=== PATIENT | female | born 1945 | race Caucasian/White ===

== ENCOUNTER 2018-05-08 09:05 | Day surgery (SDC) | payer MEDICARE, BC ==
[2018-05-04 17:17] LABS: BASOPHILS % (AUTO) 0.4 % (0-1); EOSINOPHILS # (AUTO) 0.3 X10'3 (0-0.9); LYMPHOCYTES # (AUTO) 1.9 X10'3 (1.1-4.8); LYMPHOCYTES % (AUTO) 35.2 % (21-51); MEAN CORPUSCULAR HEMOGLOBIN 31.3 PG (27.0-31.0); MEAN CORPUSCULAR HGB CONC 33.3 % (33.0-36.5); MEAN CORPUSCULAR VOLUME 93.8 FL (78-98); MONOCYTES # (AUTO) 0.6 X10'3 (0-0.9); MONOCYTES % (AUTO) 10.5 % (2-12); NEUTROPHILS # (AUTO) 2.6 X10'3 (1.8-7.7); NEUTROPHILS % (AUTO) 47.9 % (42-75); PRE OP HEMATOCRIT 42.1 % (35.0-45.0); PRE OP PLATELET COUNT 227 X10'3 (140-440); RED BLOOD COUNT 4.49 X10'6 (4.20-5.60); RED CELL DISTRIBUTION WIDTH 13.2 % (11.5-14.5)
[2018-05-04 17:24] LABS: PRE OP PROTIME 10.4 SECONDS (9.0-12.0)
[2018-05-04 17:41] LABS: ALBUMIN 3.9 G/DL (3.4-5.0); ALBUMIN/GLOBULIN RATIO 1.1 (1.1-1.5); ALKALINE PHOSPHATASE 112 IU/L (46-116); BLOOD UREA NITROGEN 15 MG/DL (7-18); BUN/CREATININE RATIO 20.3 (6.6-38.0); CALCIUM 9.5 MG/DL (8.5-10.1); CHLORIDE 105 MMOL/L (99-107); CREATININE 0.74 MG/DL (0.40-0.90); PRE OP ALT 34 U/L (30-65); PRE OP ANION GAP 11 (8-16); PRE OP AST 23 U/L (10-37); PRE OP BILIRUB, TOTAL 0.3 MG/DL (0.0-1.0); PRE OP GLUCOSE 94 MG/DL (70-104); PRE OP SODIUM 143 MMOL/L (135-145); TOTAL CARBON DIOXIDE 26.9 MMOL/L (24-32); TOTAL PROTEIN 7.3 G/DL (6.4-8.2); eGFR 77 ML/MIN
[2018-05-08] VITALS (22 sets, daily range): BP systolic 112–140; BP diastolic 62–105
[~2018-05-08] VITALS: Ht 162.6 cm; Wt 67.0 kg
[~2018-05-08 09:05] MED LIST: AMLO5TAB PO; ceFOXitin 2 GM ADDVANTGE BAG 50 ML IV ONE; ceFOXitin 2 GM ADDvantage bag 100 ML IV ONE; famotidine 20mg tablet PO ONE; ringers solution, lacted 1,000 ML IV SCH
[2018-05-08] MEDS ORDERED: BUPIVAcaine/PF 2.5mg/ml (0.25%) 10ml vial ONE (09:09)
[2018-05-08] MEDS ORDERED: morphine 10mg/ml inj. ONE (09:09)
[2018-05-08] MEDS ORDERED: ceFAZolin 1000mg inj ONE (09:09)
[2018-05-08] MEDS ORDERED: LIDOcaine 1% 30ml preserv. free vial ONE (09:09)
[2018-05-08] MEDS ORDERED: clindamycin phosphate 40gm vag cream ONE (09:09)
[2018-05-08] MEDS ORDERED: vasoPRESSIN 20 units/ml inj. ONE (09:10)
[2018-05-08] MEDS ORDERED: dexamethasone sod phosphate 10mg/ml inj ONE (10:37)
[2018-05-08] MEDS ORDERED: glycopyrrolate 0.2mg/ml inj ONE (10:37)
[2018-05-08] MEDS ORDERED: neostigmine methylsulfate 1 MG/ML 10ml vial ONE (10:37)
[2018-05-08] MEDS ORDERED: sevoflurane 250ml liquid IH ONE (10:37)
[2018-05-08] MEDS ORDERED: rocuronium 10mg/ml inj IV ONE (10:38)
[2018-05-08] MEDS ORDERED: propofol inj 20 ML IV ONE (10:38)
[2018-05-08] MEDS ORDERED: midazolam 2 mg/2 ml injection ONE (10:38)
[2018-05-08] MEDS ORDERED: meperidine/PF 50mg/ml syringe ONE (10:38)
[2018-05-08] MEDS ORDERED: fentaNYL/PF 50MCG/1 ML 2ML syringe ONE (10:38)
[2018-05-08] MEDS ORDERED: LIDOcaine 2% (20mg/ml) 5ml vial ONE (10:39)
[2018-05-08] MEDS ORDERED: ondansetron/PF 4mg/2ml inj ONE (10:39)
[2018-05-08] MEDS ORDERED: ringers solution, lacted 1,000 ML IV SCH (11:11)
[2018-05-08] MEDS ORDERED: hydrALAZINE 20mg/ml inj. IV PRN (11:15)
[2018-05-08] MEDS ORDERED: morphine 4 MG/ML inj SYRINge IV PRN ×2 (11:15)
[2018-05-08] MEDS ORDERED: labetalol 20mg/4ml (5mg/ml) syringe IV PRN (11:15)
[2018-05-08] MEDS ORDERED: fentaNYL/PF 50MCG/1 ML 2ML syringe IV PRN ×2 (11:15)
[2018-05-08] MEDS ORDERED: ondansetron/PF 4mg/2ml inj IV PRN ×2 (11:15→18:15)
[2018-05-08] MEDS: ringers solution, lacted 1,000 ML IV SCH ×2 (12:43→21:27)
[2018-05-08] MEDS ORDERED: normal saline 500ml IV soln 500 ML IV PRN (12:45)
[2018-05-08] MEDS ORDERED: HYDROcodone/acetaminophen 5mg/325mg tablet PO PRN ×2 (12:45)
[2018-05-08] MEDS ORDERED: naloxone 0.4 mg/ml inj IV PRN (12:45)
[2018-05-08] MEDS ORDERED: diphenhydrAMINE 50 mg/ml inj IV PRN (12:45)
[2018-05-08] MEDS ORDERED: magnesium hydroxide 30ml (MOM) UD suspension PO PRN (12:45)
[2018-05-08] MEDS ORDERED: temazepam 15mg capsule PO PRN (12:45)
[2018-05-08] MEDS ORDERED: CADD PCA waste documentation MC PRN (12:45)
[2018-05-08] MEDS ORDERED: bisacodyl 10mg suppository rectal RC PRN (12:45)
--- NOTE | 2018-05-08 12:50 | NUR ---
Received from OR via bed, accompanied by Anesthesiologist. Report received. Initial physical assessment done and recorded.
[2018-05-08] MEDS: simethicone 80mg chew tab PO SCH ×2 (13:00→21:25)
[2018-05-08] MEDS: HYDROmorphone/NS 1 mg/ml CADD 50 ML IV SCH ×6 (13:15→23:00)
--- NOTE | 2018-05-08 14:40 | NUR ---
Discharge criteria met, report to receiving floor. Transferred to room in stable condition.
--- NOTE | 2018-05-08 15:00 | NUR ---
Patient arrived to unit in room 340B, VSS 124/65, 94% on 2L of O2, HR 88 and temp 96.7, respirations 16, even and unlabored. No signs of distress noted. Patient reports 4/10 pain, with Dilaudid CADD pump. educated pt on use of ELECTROLYSIS ENGINEER. will continue to monitor.
--- NOTE | 2018-05-08 18:20 | NUR ---
Problems reprioritized. Patient report given, questions answered & plan of care reviewed with Melanie Sousa RN.
--- NOTE | 2018-05-08 20:30 | NUR ---
Notified Dr. Schaefer about patients persistent nausea. States pt needs to decrease CADD use and begin walking. Advised MD that CADD has not been used often, and that extension tubing had been clamped making IV fluids run into bed, therefore pt had not been receiving pain meds. Dr. Schaefer stated to continue with zofran administration as needed. No new orders.
[2018-05-09] VITALS: BP 123/64
[2018-05-09] MEDS: HYDROmorphone/NS 1 mg/ml CADD 50 ML IV SCH ×9 (01:00→17:00)
[2018-05-09] MEDS: ketorolac tromethamine 15mg/ml inj. IV PRN ×2 (01:38→14:01)
[2018-05-09] MEDS: ringers solution, lacted 1,000 ML IV SCH ×2 (05:14→12:43)
--- NOTE | 2018-05-09 05:17 | NUR ---
GARO'd FC and removed packing.
[2018-05-09 05:18] LABS: BASOPHILS % (AUTO) 0.2 % (0-1); EOSINOPHILS % (AUTO) 0.1 % (0-6); HEMATOCRIT 36.5 % (35.0-45.0); HEMOGLOBIN 12.4 g/dl (12.0-16.0); LYMPHOCYTES # (AUTO) 0.9 X10'3 (1.1-4.8); LYMPHOCYTES % (AUTO) 8.1 % (21-51); MEAN CORPUSCULAR HEMOGLOBIN 31.7 PG (27.0-31.0); MEAN CORPUSCULAR HGB CONC 34.1 % (33.0-36.5); MEAN CORPUSCULAR VOLUME 92.9 FL (78-98); MEAN PLATELET VOLUME 8.8 FL (7.4-10.4); MONOCYTES # (AUTO) 0.9 X10'3 (0-0.9); MONOCYTES % (AUTO) 7.9 % (2-12); NEUTROPHILS % (AUTO) 83.7 % (42-75); PLATELET COUNT 190 X10'3 (140-440); RED BLOOD COUNT 3.93 X10'6 (4.20-5.60); RED CELL DISTRIBUTION WIDTH 12.8 % (11.5-14.5); WHITE BLOOD COUNT 10.8 X10'3 (4.5-11.0)
--- NOTE | 2018-05-09 06:30 | NUR ---
Patient in room [facility]. I have received report from Melanie KOTHARI and had the opportunity to ask questions and assume patient care.
[2018-05-09 07:44] VITALS: BP 109/51
[2018-05-09] MEDS ORDERED: amLODIPine 5mg tablet PO SCH (08:00)
[2018-05-09] MEDS: simethicone 80mg chew tab PO SCH ×2 (08:08→13:04)
[2018-05-09 11:00] VITALS: BP 122/62
--- NOTE | 2018-05-09 13:00 | NUR ---
Patient eating lunch and has walked multiple time, patient is trying to void and does not want to have morse placed.
--- NOTE | 2018-05-09 15:45 | NUR ---
Patient states unable to void and is agreeable for placement of morse cathter to be discharged with and removed at later date and scheduled by physician.
--- NOTE | 2018-05-09 16:20 | NUR ---
Patient had morse catheter placed at this time, 2nd attempt with positive placement. Patient experienced immediate relief. Patient educated at this time on morse care and cleaning. Patient also educated on bag change from leg bag to night bag. patient expressed verbal understanding of morse care.
--- NOTE | 2018-05-09 17:30 | NUR ---
Patient discharge was done at this time, patient in room for discharge teaching. Patient expressed verbal understanding of [place] care and expressed verbal understanding of following up with physician. Patients IV was taken out at this time and canula was whole and intacted. Patient was wheeled down to entrance and transported home via private vehicle.
== END 2018-05-09 18:00 | disposition home or self-care (01) ==
LOC: PAS 09:05 → SUR 3N 12:43 → PAS 05-09 18:00
PROVIDERS: ATTEND Specialist
DX: N76.1 Subacute and chronic vaginitis (principal); N73.6 Female pelvic peritoneal adhesions (postinfective); N88.8 Other specified noninflammatory disorders of cervix uteri; N88.0 Leukoplakia of cervix uteri; N83.8 Other noninflammatory disorders of ovary, fallopian tube and broad ligament; N81.11 Cystocele, midline; N81.5 Vaginal enterocele; N39.46 Mixed incontinence; N36.42 Intrinsic sphincter deficiency (ISD); N95.0 Postmenopausal bleeding; M19.90 Unspecified osteoarthritis, unspecified site; M81.0 Age-related osteoporosis without current pathological fracture; I10 Essential (primary) hypertension; Z88.5 Allergy status to narcotic agent; Z79.891 Long term (current) use of opiate analgesic; Z72.89 Other problems related to lifestyle; Z98.51 Tubal ligation status; Z98.890 Other specified postprocedural states; Z79.899 Other long term (current) drug therapy
CPT/HCPCS: 36415; 57240; 57283; 57288; 58552; 80053; 82948; 85025; 85610; 85730; 86885; 86900; 86901; 87070; A6255; C1771; J0690; J0694; J1100; J1170; J1885; J2001; J2175; J2250; J2270; J2405; J2704; J2710; J3010; J3490; J7120; 88302; 88307; A4315; A4355; A6250; A7000; G0378; J7030

== ENCOUNTER 2023-12-20 15:27 | Emergency (ER) | payer MEDICARE, BC ==
[~2023-12-20] VITALS: Ht 162.6 cm; Wt 65.9 kg
[~2023-12-20 15:27] MED LIST changes: -ceFOXitin 2 GM ADDVANTGE BAG 50 ML IV ONE; -ceFOXitin 2 GM ADDvantage bag 100 ML IV ONE; -famotidine 20mg tablet PO ONE; -ringers solution, lacted 1,000 ML IV SCH
[2023-12-20] MEDS: methylPREDNISolone sod succ 125mg/2ml vial IM ONE (16:15)
[2023-12-20] MEDS ORDERED: PRED20TA PO (16:18)
[2023-12-20] MEDS ORDERED: METH-798 PO (16:18)
[2023-12-20 16:31] VITALS: BP 140/74; PULSE 79; RESP 16; TEMP 98.5; O2SAT 98
== END 2023-12-20 16:32 | disposition home or self-care (01) ==
LOC: ER 15:28
DX: M54.12 Radiculopathy, cervical region (principal); Z79.899 Other long term (current) drug therapy
CPT/HCPCS: 96372; 99283; J2919

== ENCOUNTER 2024-07-27 19:13 | Emergency (ER) | payer MEDICARE, BC ==
[~2024-07-27] VITALS: Ht 162.6 cm; Wt 66.3 kg
[~2024-07-27 19:13] MED LIST changes: +METH-798 PO
[2024-07-27 19:16] VITALS: TEMP 98.4
[2024-07-27 20:19] LABS: BASOPHILS # (AUTO) 0.1 X10'3 (0-0.2); EOSINOPHILS # (AUTO) 0.2 X10'3 (0-0.9); MONOCYTES # (AUTO) 0.8 X10'3 (0-0.9)
[2024-07-27 20:22] LABS: BASOPHILS % (AUTO) 1.2 % (0-1); EOSINOPHILS % (AUTO) 2.5 % (0-6); HEMATOCRIT 43.7 % (35.0-45.0); HEMOGLOBIN 14.8 g/dl (12.0-16.0); LYMPHOCYTES # (AUTO) 2.5 X10'3 (1.1-4.8); LYMPHOCYTES % (AUTO) 32.6 % (21-51); MEAN CORPUSCULAR HEMOGLOBIN 31.6 PG (27.0-31.0); MEAN CORPUSCULAR HGB CONC 33.9 g/dL (33.0-36.5); MEAN CORPUSCULAR VOLUME 93.1 FL (78-98); MONOCYTES % (AUTO) 10.8 % (2-12); NEUTROPHILS % (AUTO) 52.9 % (42-75); PLATELET COUNT 172 X10'3 (140-440); RED BLOOD COUNT 4.69 X10'6 (4.20-5.60); RED CELL DISTRIBUTION WIDTH 13.7 % (11.5-14.5); WHITE BLOOD COUNT 7.5 X10'3 (4.5-11.0)
[2024-07-27 20:32] LABS: ALANINE AMINOTRANSFERASE 36 U/L (12-78); ALBUMIN 4.1 G/DL (3.4-5.0); ALBUMIN/GLOBULIN RATIO 1.3 (1.1-1.5); ALKALINE PHOSPHATASE 115 IU/L (46-116); ANION GAP 9 (8-16); BILIRUBIN,TOTAL 0.4 MG/DL (0.1-1.0); BLOOD UREA NITROGEN 18 MG/DL (7-18); CALCIUM 9.4 MG/DL (8.5-10.1); CHLORIDE 105 MMOL/L (99-107); CREATININE 0.82 MG/DL (0.40-0.90); GLUCOSE 108 MG/DL (70-104); PRO BRAIN NATRIURETIC PEPTIDE 284 PG/ML (0-450); SODIUM 142 MMOL/L (135-145); TOTAL CARBON DIOXIDE 27.6 MMOL/L (24-32); TOTAL PROTEIN 7.3 G/DL (6.4-8.2); eCRCL 49 ML/MIN; eGFR 67 ML/MIN
[2024-07-27] MEDS: ondansetron/PF 4mg/2ml inj IV ONE (20:32)
[2024-07-27 20:33] LABS: ASPARTATE AMINO TRANSFERASE 32 U/L (10-37); POTASSIUM 4.1 MMOL/L (3.5-5.1)
[2024-07-27] MEDS: morphine 4 MG/ML inj SYRINge IV ONE (20:33)
[2024-07-27] MEDS ORDERED: iohexol 300mg/ml 100ml inj. ONE (20:37)
[2024-07-27 20:55] LABS: D-DIMER 0.32 MG/L FEU (0-0.50)
[2024-07-27 23:09] VITALS: BP 139/75; PULSE 82; RESP 15; O2SAT 97
[2024-07-28] MEDS ORDERED: magnesium sulf-water 4G/100mL 100 ML IV PRN (00:15)
[2024-07-28] MEDS ORDERED: potassium Cl 40MEQ/1/2NS 520ml 520 ML IV PRN (00:15)
[2024-07-28] MEDS ORDERED: acetaminophen 325mg tablet PO PRN ×2 (00:15)
[2024-07-28] MEDS ORDERED: magnesium sulf-water 2g/50mL 50 ML IV PRN (00:15)
[2024-07-28] MEDS ORDERED: magnesium hydroxide 30ml (MOM) UD suspension PO PRN (00:15)
[2024-07-28] MEDS ORDERED: magnesium Cl slow-release 64mg tablet PO PRN (00:15)
[2024-07-28] MEDS ORDERED: ondansetron/PF 4mg/2ml inj IV PRN (00:15)
[2024-07-28] MEDS ORDERED: mag hydrox/Alum hydrox/simeth 30ml oral suspension PO PRN (00:15)
[2024-07-28] MEDS ORDERED: potassium Cl 20 mEq SR tablet PO PRN ×2 (00:15)
[2024-07-28] MEDS ORDERED: K and/or MAG REPLACEMENT MC SCH (08:00)
[2024-07-28] MEDS ORDERED: docusate sod 100mg capsule PO SCH (08:00)
[2024-07-28] MEDS ORDERED: pantoprazole 40 MG vial IV SCH (08:00)
[2024-07-28] MEDS ORDERED: enoxaparin 40mg/0.4ml syringe SUBCUT SCH (08:00)
== END 2024-07-28 03:12 | disposition admitted as inpatient to this hospital (09) ==
LOC: ER 19:14 → INTOOBSV 07-28 00:19 → UNDOADMOB 07-28 00:19 → ED HOLD 07-28 00:19 → UNDODISOB 07-28 03:31
DX: R07.9 Chest pain, unspecified (principal)
CPT/HCPCS: 36415; 71045; 74177; 80053; 83690; 83880; 84484; 85025; 85379; 93005; 96374; 96375; 99285; J2270; J2405; Q9967; G0378